=== PATIENT | male | born 1965 | race Caucasian/White ===

== ENCOUNTER → 2024-06-12 09:44 | Outpatient (REF) | payer OTHER, SELFPAY | LOC: HWRAD 09:44 | PROVIDERS: ATTENDING PHYSICIAN Physician Assistant Medical; FAMILY PHYSICIAN Family Medicine | DX: R91.1 Solitary pulmonary nodule (principal) | CPT/HCPCS: 71260; Q9967 ==

== ENCOUNTER → 2025-01-06 12:36 | Outpatient (REF) | payer OTHER, SELFPAY | LOC: PET 12:36 | PROVIDERS: ATTENDING PHYSICIAN Radiology Radiation Oncology | DX: C61 Malignant neoplasm of prostate (principal) | CPT/HCPCS: 78815; A9595 ==

== ENCOUNTER 2025-08-15 09:21 | Outpatient (RCR) | payer OTHER, SELFPAY | END 2025-08-15 23:59 | disposition home or self-care (01) | LOC: RPT 09:21 | PROVIDERS: ATTENDING PHYSICIAN Radiology Radiation Oncology; FAMILY PHYSICIAN Family Medicine | DX: M25.511 Pain in right shoulder (principal); C61 Malignant neoplasm of prostate; Z73.6 Limitation of activities due to disability; M62.81 Muscle weakness (generalized); Z90.79 Acquired absence of other genital organ(s) | CPT/HCPCS: 97110; 97162 ==

== ENCOUNTER 2025-09-24 10:23 | Outpatient (RCR) | payer OTHER, SELFPAY | END 2025-09-24 23:59 | disposition home or self-care (01) | LOC: RPT 10:23 | PROVIDERS: ATTENDING PHYSICIAN Radiology Radiation Oncology; FAMILY PHYSICIAN Family Medicine | DX: M25.511 Pain in right shoulder (principal); C61 Malignant neoplasm of prostate; Z73.6 Limitation of activities due to disability; M62.81 Muscle weakness (generalized); Z90.79 Acquired absence of other genital organ(s) | CPT/HCPCS: 97110 ==